=== PATIENT | male | born 1975 | race Caucasian/White ===

== ENCOUNTER 2016-11-14 17:38 | Emergency (ER) | payer BC ==
[~2016-11-14] VITALS: Ht 170.2 cm; Wt 104.3 kg
[~2016-11-14 17:38] MED LIST: ALBUTEROL; ALBUTEROL0.09 MG/A1 IH; QVAR HFA M80 MCG/ACT INH; [UNRECOGNIZED DRUG - REMARK]
--- NOTE | 2016-11-14 19:40 | NUR ---
Patient ambulated to bed 01.
--- NOTE | 2016-11-14 19:55 | NUR ---
41 Y/O M W/C/O HEADACHES THAT RADIATES BEHIND EYES, LOWER ABD PAIN AND L TESTICULAR PAIN X 1 WK. C/O FEELING DIZZY THE LAST 2 DAYS. NO S/S OF DISTRESS AT THIS MOMENT, ER MD NOTIFIED.
--- NOTE | 2016-11-14 20:33 | NUR ---
Dr. Callahan evaluating patient at bedside.
[2016-11-14] MEDS ORDERED: METOCLOPRAMIDE 10 MG/2 ML INJ VIAL IVP ONE (20:40)
[2016-11-14] MEDS ORDERED: NACL 0.9% 1,000 ML IV ONE (20:45)
[2016-11-14] MEDS ORDERED: IBUPROFEN 800 MG TAB PO ONE (22:20)
[2016-11-14 22:46] VITALS: BP 119/70
--- NOTE | 2016-11-14 22:46 | NUR ---
Patient discharged with v/s stable. Written and verbal after care instructions given and explained. Patient alert, oriented and verbalized understanding of instructions. Ambulatory with steady gait. All questions addressed prior to discharge. ID band removed. Patient advised to follow up with PMD OR IF CONDITION WORSENS RETURN TO ER. Rx of IBUPROFEN AND REGLAN given. Patient educated on indication of medication including possible reaction and side effects. Opportunity to ask questions provided and answered.
== END 2016-11-14 22:46 | disposition home or self-care (01) ==
LOC: MED 17:38
DX: J34.1 Cyst and mucocele of nose and nasal sinus (principal); N50.812 Left testicular pain; R10.30 Lower abdominal pain, unspecified
CPT/HCPCS: 36415; 70450; 80053; 81001; 85025; 85651; 93005; 96361; 96374; 99285; J2765; J7030

== ENCOUNTER 2017-12-02 18:22 | Emergency (ER) | payer SELFPAY ==
[~2017-12-02] VITALS: Ht 170.2 cm; Wt 97.5 kg
[~2017-12-02 18:22] MED LIST changes: -ALBUTEROL; -ALBUTEROL0.09 MG/A1 IH; +BECL0.089 INH; -QVAR HFA M80 MCG/ACT INH
[2017-12-02 18:29] VITALS: BP 128/90
[2017-12-02] MEDS ORDERED: NACL 0.9% 1,000 ML IV SCH (18:34)
[2017-12-02] MEDS ORDERED: ONDANSETRON 4 MG/2 ML VIAL IVP ONE ×2 (18:35→20:30)
[2017-12-02] MEDS ORDERED: MORPHINE SULFATE 10 MG/ML SYR IVP ONE (18:35)
--- NOTE | 2017-12-02 18:52 | NUR ---
PT RETURNED FROM CT
[2017-12-02] MEDS ORDERED: MORPHINE SULFATE 2 MG/ML SYR ONE (19:03)
[2017-12-02] MEDS ORDERED: MORPHINE SULFATE 4 MG/ML SYR ONE (19:04)
[2017-12-02 19:08] LABS: BASOPHILS # (AUTO) 0.4 K/uL (0.00-0.22); EOSINOPHILS # (AUTO) 0.2 K/uL (0-0.4); HEMATOCRIT 45.5 % (36-52); HEMOGLOBIN 15.1 g/dL (12.0-18.0); LYMPHOCYTES # (AUTO) 1.9 K/uL (2.0-11.5); MEAN CORPUSCULAR HEMOGLOBIN 30 pg (27-31); MEAN CORPUSCULAR HGB CONC 33 g/dL (33-37); MEAN CORPUSCULAR VOLUME 90 fL (80-94); MONOCYTES # (AUTO) 0.6 K/uL (0.8-1.0); NEUTROPHILS # (AUTO) 5.6 K/uL (1.8-7.7); PLATELET COUNT (AUTO) 169 K/uL (140-450); RED BLOOD CELL COUNT(AUTO) 5.08 MIL/uL (4.20-6.10); RED CELL DISTRIBUTION WIDTH 11.7 % (11.6-13.7); WHITE BLOOD COUNT (AUTO) 8.7 K/uL (4.8-10.8)
--- NOTE | 2017-12-02 19:16 | NUR ---
NURSING ASSESSMENT COMPLETED. DIAGNOSTIC TESTING INITIATED, IV ACCESS EST., LABS DRAWN, XRAY COMPLETED.
[2017-12-02 19:23] LABS: ALBUMIN 3.8 g/dL (3.4-5.0); ANION GAP 12.6 (8-16); CARBON DIOXIDE 29.7 mmol/L (21-32); CREATININE 1.6 mg/dL (0.7-1.3); POTASSIUM 3.3 mmol/L (3.5-5.1); TOTAL BILIRUBIN 1.1 mg/dL (0.0-1.0)
--- NOTE | 2017-12-02 19:26 | NUR ---
report recieved and care taken
[2017-12-02] MEDS ORDERED: KETOROLAC 30 MG/ML VIAL IVP ONE (20:30)
[2017-12-02] MEDS ORDERED: TAMSULOSIN 0.4 MG CAP PO STA (21:06)
--- NOTE | 2017-12-02 21:14 | NUR ---
HOUSE SUP CALLED FOR FLOMAX, NOT AVAILABLE IN ER
[2017-12-02 21:17] LABS: APPEARANCE,URINE HAZY (CLEAR); BILIRUBIN,URINE NEGATIVE (NEGATIVE); BLOOD, URINE 3+ (NEGATIVE); COLOR,URINE YELLOW (YELLOW); LEUKOCYTE ESTERASE ,URINE NEGATIVE (NEGATIVE); NITRITE, URINE NEGATIVE (NEGATIVE); UGLUCOSE NEGATIVE (NEGATIVE)
[2017-12-02 21:23] LABS: RBC,URINE 20-50 /HPF (0-5); WBC,URINE 0-5 (RARE) /HPF (0-5)
[2017-12-02 22:01] VITALS: BP 128/90
--- NOTE | 2017-12-02 22:01 | NUR ---
dcPatient discharged with v/s stable with decreased pain. Written and verbal after care instructions given and explained. Patient alert, oriented and verbalized understanding of instructions. Ambulatory with steady gait. All questions addressed prior to discharge. ID band removed. Patient advised to follow up with PMD. Rx of flomax, norco given. Patient educated on indication of medication including possible reaction and side effects. Opportunity to ask questions provided and answered.
== END 2017-12-02 22:01 | disposition home or self-care (01) ==
LOC: MED 18:22
DX: S37.002A Unspecified injury of left kidney, initial encounter (principal); N23 Unspecified renal colic; J45.909 Unspecified asthma, uncomplicated; K21.9 Gastro-esophageal reflux disease without esophagitis; Z79.899 Other long term (current) drug therapy; X58.XXXA Exposure to other specified factors, initial encounter; Y93.89 Activity, other specified; Y92.89 Other specified places as the place of occurrence of the external cause; Y99.8 Other external cause status
CPT/HCPCS: 36415; 74176; 80053; 81001; 83690; 85025; 96361; 96374; 96375; 96376; 99285; J1885; J2270; J2405

== ENCOUNTER 2017-12-08 19:50 | Emergency (ER) | payer BC ==
[~2017-12-08] VITALS: Ht 170.2 cm; Wt 97.5 kg
--- NOTE | 2017-12-08 19:57 | NUR ---
Pt c/o severe left flank pain, diaphoretic, and vomiting. Amb to bed 12.
[2017-12-08 19:58] VITALS: BP 160/94
--- NOTE | 2017-12-08 20:00 | NUR ---
42/M CAME IN W C/O 07/10 LEFT FLANK PAIN, PROGRESSIVELY WORSENING, SHARP, CONSTANT X 1 DAY. PT REPORTS HE WAS HERE 12/02/17 DX: KIDNEY STONE. DENIES FEVER/CHILLS, REPORTS N/V X3 TODAY. PT IN SEVERE DISTRESS AND DIAPHORETIC. ER MD LINDA MADE AWARE
[2017-12-08] MEDS ORDERED: MORPHINE SULFATE 4 MG/ML SYR ONE (20:13)
[2017-12-08] MEDS ORDERED: ONDANSETRON 4 MG ODT ONE (20:15)
[2017-12-08] MEDS ORDERED: NACL 0.9% 1,000 ML IV ONE ×2 (20:25→22:30)
[2017-12-08] MEDS ORDERED: KETOROLAC 30 MG/ML VIAL IVP ONE (20:25)
[2017-12-08] MEDS ORDERED: MORPHINE SULFATE 4 MG/ML SYR IVP ONE (20:35)
[2017-12-08] MEDS ORDERED: ONDANSETRON 4 MG ODT PO ONE (20:35)
[2017-12-08 21:27] LABS: APPEARANCE,URINE CLEAR (CLEAR); BILIRUBIN,URINE NEGATIVE (NEGATIVE); BLOOD, URINE TRACE-I (NEGATIVE); COLOR,URINE YELLOW (YELLOW); LEUKOCYTE ESTERASE ,URINE NEGATIVE (NEGATIVE); NITRITE, URINE NEGATIVE (NEGATIVE); PH,URINE 5.5 (5.0-9.0); UGLUCOSE NEGATIVE (NEGATIVE)
[2017-12-08 21:28] LABS: BASOPHILS # (AUTO) 0.2 K/uL (0.00-0.22); BASOPHILS % (AUTO) 1.8 % (0.0-2.0); EOSINOPHILS # (AUTO) 0.1 K/uL (0-0.4); EOSINOPHILS % (AUTO) 0.7 % (0.0-4.0); HEMOGLOBIN 14.4 g/dL (12.0-18.0); LYMPHOCYTES % (AUTO) 7.8 % (20.5-51.1); MEAN CORPUSCULAR HEMOGLOBIN 30 pg (27-31); MEAN CORPUSCULAR HGB CONC 33 g/dL (33-37); MEAN CORPUSCULAR VOLUME 91 fL (80-94); MONOCYTES # (AUTO) 0.7 K/uL (0.8-1.0); MONOCYTES % (AUTO) 5.2 % (1.7-9.3); NEUTROPHILS # (AUTO) 10.9 K/uL (1.8-7.7); NEUTROPHILS % (AUTO) 84.5 % (42.2-75.2); PLATELET COUNT (AUTO) 160 K/uL (140-450); RED BLOOD CELL COUNT(AUTO) 4.86 MIL/uL (4.20-6.10); RED CELL DISTRIBUTION WIDTH 11.6 % (11.6-13.7); WHITE BLOOD COUNT (AUTO) 12.9 K/uL (4.8-10.8)
[2017-12-08] MEDS ORDERED: HYDROmorphone PFS 2 MG/ML SYR IVP ONE ×2 (21:30→23:05)
[2017-12-08 21:35] LABS: ANION GAP 14.2 (8-16); CARBON DIOXIDE 26.6 mmol/L (21-32); CREATININE 1.3 mg/dL (0.7-1.3); POTASSIUM 3.8 mmol/L (3.5-5.1)
[2017-12-08 21:36] LABS: ALBUMIN 3.6 g/dL (3.4-5.0); TOTAL BILIRUBIN 0.7 mg/dL (0.0-1.0)
[2017-12-08] MEDS ORDERED: NACL 0.9% 3,000 ML IV ONE (22:10)
[2017-12-09 00:30] VITALS: BP 132/76
--- NOTE | 2017-12-09 00:30 | NUR ---
Patient discharged with v/s stable. Written and verbal after care instructions given and explained. Patient alert, oriented and verbalized understanding of instructions. Ambulatory with steady gait. All questions addressed prior to discharge. ID band removed. Patient advised to follow up with PMD. Rx of IBUPROFEN, PERCOCETM FLOMAX, ZOFRAN given. Patient educated on indication of medication including possible reaction and side effects. Opportunity to ask questions provided and answered. IV removed, catheter intact and site benign. Applied folded 4x4 gauze and tape to stop bleeding.
--- NOTE | 2017-12-27 20:01 | NUR ---
12/08/17 NS 1L ENDTIME: [id number]
== END 2017-12-09 00:30 | disposition home or self-care (01) ==
LOC: MED 19:50
DX: N23 Unspecified renal colic (principal); J45.909 Unspecified asthma, uncomplicated; K21.9 Gastro-esophageal reflux disease without esophagitis; Z79.899 Other long term (current) drug therapy
CPT/HCPCS: 36415; 80053; 81003; 83605; 83690; 85025; 87040; 96361; 96374; 96375; 96376; 99284; J1170; J1885; J2270; J7030; S0119

== ENCOUNTER 2018-02-28 21:23 | Emergency (ER) | payer BC ==
[~2018-02-28] VITALS: Ht 170.2 cm; Wt 99.8 kg
[2018-02-28 21:29] VITALS: BP 115/83
[2018-02-28 21:34] VITALS: BP 115/83
--- NOTE | 2018-02-28 21:34 | NUR ---
TO LOBBY AMBULATORY, A/W BED, KOBE HEARD NOTED
--- NOTE | 2018-02-28 21:45 | NUR ---
Isabel varela in [facility] - 02/28/18 at 2325 by MEDDCV PATIENT LEFT WITHOUT BEING SEEN BY DR. SIMON. NO FURTHER CARE PROVIDED FOR PATIENT.
--- NOTE | 2018-02-28 22:45 | NUR ---
PATIENT LEFT WITHOUT BEING SEEN BY DR. SIMON. NO FURTHER CARE PROVIDED FOR PATIENT.
== END 2018-02-28 22:45 | disposition left against medical advice (07) ==
LOC: MED 21:23
DX: R07.89 Other chest pain (principal); J45.909 Unspecified asthma, uncomplicated; K21.9 Gastro-esophageal reflux disease without esophagitis; Z79.899 Other long term (current) drug therapy; Z53.21 Procedure and treatment not carried out due to patient leaving prior to being seen by health care provider
CPT/HCPCS: 93005; 99281

== ENCOUNTER 2020-01-16 19:12 | Emergency (ER) | payer BC ==
[~2020-01-16] VITALS: Ht 170.2 cm; Wt 103.4 kg
[2020-01-16 19:32] VITALS: BP 132/89
--- NOTE | 2020-01-16 19:40 | NUR ---
Dr. zaidi at bedside.
[2020-01-16] MEDS ORDERED: KETOROLAC 15 MG/ML VIAL IVP ONE (19:45)
[2020-01-16] MEDS ORDERED: NACL 0.9% 1,000 ML IV ONE (19:45)
--- NOTE | 2020-01-16 19:47 | NUR ---
44 YO MALE CO LEFT FLANK PAIN X1 WEEK AND PROGRESSING. 8/10 PAIN. RADIATES TO LEFT LOWER BACK AND SUPRAPUBIC LEFT SIDE. INCREASE IN URINE FREQUENCY. HX: ASTHMA
--- NOTE | 2020-01-16 20:07 | NUR ---
pt taken to ct via wheelchair.
--- NOTE | 2020-01-16 20:07 | NUR ---
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
--- NOTE | 2020-01-16 20:07 | NUR ---
LABS DRAWN AND LAB NOTIFIED
--- NOTE | 2020-01-16 20:11 | NUR ---
PT BACK FROM CT
[2020-01-16 20:17] LABS: BASOPHILS # (AUTO) 0.1 K/uL (0.00-0.22); BASOPHILS % (AUTO) 0.7 % (0.0-2.0); EOSINOPHILS # (AUTO) 0.2 K/uL (0-0.4); EOSINOPHILS % (AUTO) 2.4 % (0.0-4.0); HEMATOCRIT 45.4 % (36-52); HEMOGLOBIN 15.6 g/dL (12.0-18.0); LYMPHOCYTES # (AUTO) 2.8 K/uL (2.0-11.5); MEAN CORPUSCULAR HEMOGLOBIN 31 pg (27-31); MEAN CORPUSCULAR HGB CONC 34 g/dL (33-37); MEAN CORPUSCULAR VOLUME 90.6 fL (80-94); MONOCYTES # (AUTO) 0.6 K/uL (0.8-1.0); MONOCYTES % (AUTO) 7.9 % (1.7-9.3); NEUTROPHILS # (AUTO) 4.4 K/uL (1.8-7.7); PLATELET COUNT (AUTO) 177 K/uL (140-450); RED BLOOD CELL COUNT(AUTO) 5.01 MIL/uL (4.20-6.10); RED CELL DISTRIBUTION WIDTH 13.2 % (11.6-13.7); WHITE BLOOD COUNT (AUTO) 8.1 K/uL (4.8-10.8)
[2020-01-16 20:25] LABS: ANION GAP 16.3 (8-16); CARBON DIOXIDE 22.7 mmol/L (21-32); CREATININE 1.1 mg/dL (0.6-1.3)
[2020-01-16 21:11] VITALS: BP 132/89
--- NOTE | 2020-01-16 21:11 | NUR ---
Patient discharged with v/s stable. Written and verbal after care instructions given and explained. Patient verbalized understanding. Ambulatory with steady gait. All questions addressed prior to discharge. Advised to follow up with PMD. PT GIVEN RESULTS FOR IMAGING AND LABS AND INSTRUCTED TO FOLLOW UP WITH PCP AND UROLOGIST.
== END 2020-01-16 21:11 | disposition home or self-care (01) ==
LOC: MED 19:12
DX: N13.30 Unspecified hydronephrosis (principal); J45.909 Unspecified asthma, uncomplicated; K21.9 Gastro-esophageal reflux disease without esophagitis; Z90.49 Acquired absence of other specified parts of digestive tract; Z79.899 Other long term (current) drug therapy
CPT/HCPCS: 36415; 74176; 80048; 81002; 85025; 96374; 99284; J1885; J7030

== ENCOUNTER 2020-12-09 18:05 | Emergency (ER) | payer BC ==
[~2020-12-09] VITALS: Ht 170.2 cm; Wt 112.9 kg
[2020-12-09 18:13] VITALS: BP 134/80
--- NOTE | 2020-12-09 18:16 | NUR ---
PATIENT GIVEN URINE CUP AND AMBULATED TO LOBBY WITH STEADY GAIT
[2020-12-09] MEDS ORDERED: NACL 0.9% 1,000 ML IV ONE (19:50)
[2020-12-09] MEDS ORDERED: KETOROLAC 15 MG/ML VIAL IVP ONE (19:50)
[2020-12-09 20:12] LABS: APPEARANCE,URINE CLEAR (CLEAR); BILIRUBIN,URINE NEGATIVE (NEGATIVE); BLOOD, URINE NEGATIVE (NEGATIVE); COLOR,URINE YELLOW (YELLOW); LEUKOCYTE ESTERASE ,URINE NEGATIVE (NEGATIVE); NITRITE, URINE NEGATIVE (NEGATIVE); PH,URINE 5.5 (5.0-9.0); UGLUCOSE NEGATIVE (NEGATIVE)
[2020-12-09 20:20] LABS: BASOPHILS % (AUTO) 0.7 % (0.0-2.0); EOSINOPHILS # (AUTO) 0.2 K/uL (0-0.4); EOSINOPHILS % (AUTO) 2.5 % (0.0-4.0); HEMATOCRIT 44.5 % (36-52); HEMOGLOBIN 15.1 g/dL (12.0-18.0); LYMPHOCYTES # (AUTO) 2.7 K/uL (2.0-11.5); LYMPHOCYTES % (AUTO) 39.6 % (20.5-51.1); MEAN CORPUSCULAR HEMOGLOBIN 30 pg (27-31); MEAN CORPUSCULAR HGB CONC 34 g/dL (33-37); MEAN CORPUSCULAR VOLUME 89.2 fL (80-94); MONOCYTES # (AUTO) 0.6 K/uL (0.8-1.0); MONOCYTES % (AUTO) 8.3 % (1.7-9.3); NEUTROPHILS # (AUTO) 3.3 K/uL (1.8-7.7); NEUTROPHILS % (AUTO) 48.9 % (42.2-75.2); PLATELET COUNT (AUTO) 160 K/uL (140-450); RED BLOOD CELL COUNT(AUTO) 4.99 MIL/uL (4.20-6.10); WHITE BLOOD COUNT (AUTO) 6.7 K/uL (4.8-10.8)
[2020-12-09 20:32] LABS: ALBUMIN 3.9 g/dL (3.4-5.0); ANION GAP 11.2 (8-16); CARBON DIOXIDE 27.5 mmol/L (21-32); CREATININE 1.2 mg/dL (0.6-1.3); POTASSIUM 3.7 mmol/L (3.5-5.1); TOTAL BILIRUBIN 0.6 mg/dL (0.0-1.0)
[2020-12-09] MEDS ORDERED: MORPHINE SULFATE 4 MG/ML SYR IVP ONE (21:15)
[2020-12-09 21:16] VITALS: BP 107/76
--- NOTE | 2020-12-09 21:21 | NUR ---
see complete assessment.
--- NOTE | 2020-12-09 21:21 | NUR ---
pt remains on bed on semi fowlers position. pt a/o x4, gcs 15. able to move all extremities. VSS. does not appear to be in distress at this time. IV site patent and flushable.
[2020-12-09] MEDS ORDERED: PYR100 PO (22:19)
[2020-12-09] MEDS ORDERED: TAMS0.4C96 PO (22:19)
--- NOTE | 2020-12-09 22:30 | NUR ---
Patient discharged with v/s stable. Written and verbal after care instructions given and explained. Patient alert, oriented and verbalized understanding of instructions. Ambulatory with steady gait. All questions addressed prior to discharge. ID band removed. Patient advised to follow up with PMD. Rx of flomax and pyridium given. Patient educated on indication of medication including possible reaction and side effects. Opportunity to ask questions provided and answered.
== END 2020-12-09 22:30 | disposition home or self-care (01) ==
LOC: MED 18:05
DX: R30.0 Dysuria (principal); R10.9 Unspecified abdominal pain
CPT/HCPCS: 36415; 74176; 80053; 81003; 83690; 85025; 96361; 96374; 96375; 99284; J1885; J2270; J7030

== ENCOUNTER 2022-04-28 15:16 | Inpatient (IN) | payer BC ==
[~2022-04-28] VITALS: Ht 170.2 cm; Wt 108.1 kg
[~2022-04-28 15:16] MED LIST changes: +PYR100 PO; +TAMS0.4C96 PO
[2022-04-28 15:26] VITALS: BP 144/98
[2022-04-28] MEDS ORDERED: ONDANSETRON 4 MG ODT PO ONE (16:00)
[2022-04-28] MEDS ORDERED: DICYCLOMINE HCL LIQUID 20 MG, ALUMINUM HYD/MAG/SIMETHICONE 30 ML, LIDOCAINE VISCOUS 2% ... PO ONE ×3 (16:00)
[2022-04-28] MEDS ORDERED: ALUMINUM HYD/MAG/SIMETHICONE 30 ML UDC ONE (16:05)
[2022-04-28] MEDS ORDERED: DICYCLOMINE HCL LIQUID 10 MG/5 ML UDC ONE (16:05)
--- NOTE | 2022-04-28 16:41 | NUR ---
PATIENT PRESENTS TO ED WITH ABD PAIN, N/V ONSET LAST NIGHT. DENIES N/V/D; SKIN IS PINK/WARM/DRY; AAOX4 WITH EVEN AND STEADY GAIT; LUNGS CLEAR BL; HR EVEN AND REGULAR; PT DENIES ANY FEVER, CP, SOB, OR COUGH AT THIS TIME; PATIENT STATES PAIN OF 10/10 AT THIS TIME; VSS; PATIENT POSITIONED FOR COMFORT; HOB ELEVATED; BEDRAILS UP X2; BED DOWN. ER MD MADE AWARE OF PT STATUS.
[2022-04-28 16:47] LABS: BASOPHILS % (AUTO) 0.3 % (0.0-2.0); EOSINOPHILS % (AUTO) 0.1 % (0.0-4.0); HEMATOCRIT 50.8 % (36-52); HEMOGLOBIN 17.1 g/dL (12.0-18.0); LYMPHOCYTES # (AUTO) 1.2 K/uL (2.0-11.5); LYMPHOCYTES % (AUTO) 9.4 % (20.5-51.1); MEAN CORPUSCULAR HEMOGLOBIN 30 pg (27-31); MEAN CORPUSCULAR HGB CONC 34 g/dL (33-37); MONOCYTES # (AUTO) 0.6 K/uL (0.8-1.0); MONOCYTES % (AUTO) 4.7 % (1.7-9.3); NEUTROPHILS # (AUTO) 10.9 K/uL (1.8-7.7); NEUTROPHILS % (AUTO) 85.5 % (42.2-75.2); PLATELET COUNT (AUTO) 203 K/uL (140-450); RED BLOOD CELL COUNT(AUTO) 5.71 MIL/uL (4.20-6.10); WHITE BLOOD COUNT (AUTO) 12.7 K/uL (4.8-10.8)
[2022-04-28 17:04] LABS: ALBUMIN 4.7 g/dL (3.4-5.0); ANION GAP 15.2 (8-16); CARBON DIOXIDE 27.8 mmol/L (21-32); CREATININE 1.1 mg/dL (0.6-1.3); TOTAL BILIRUBIN 2.4 mg/dL (0.0-1.0)
[2022-04-28] MEDS ORDERED: NACL 0.9% 1,000 ML IV ONE (17:25)
--- NOTE | 2022-04-28 17:25 | NUR ---
DR BILLS AT [facility], UPDATING PATIENT ACCORDINGLY.
--- NOTE | 2022-04-28 17:47 | NUR ---
TO CT VIA WC.
[2022-04-28] MEDS ORDERED: MORPHINE SULFATE 2 MG/ML SYR IVP STA (18:19)
[2022-04-28] MEDS ORDERED: ONDANSETRON 4 MG/2 ML VIAL IVP ONE (18:20)
[2022-04-28 19:11] LABS: APPEARANCE,URINE CLEAR (CLEAR); BILIRUBIN,URINE NEGATIVE (NEGATIVE); BLOOD, URINE NEGATIVE (NEGATIVE); COLOR,URINE BROWN (YELLOW); LEUKOCYTE ESTERASE ,URINE NEGATIVE (NEGATIVE); NITRITE, URINE NEGATIVE (NEGATIVE); UGLUCOSE NEGATIVE (NEGATIVE)
--- NOTE | 2022-04-28 19:15 | NUR ---
RECIEVED REPORT FROM HELENA HALL
--- NOTE | 2022-04-28 20:30 | NUR ---
XRAY AT BEDSIDE
--- NOTE | 2022-04-28 20:55 | NUR ---
XRAY AT BEDSIDE
[2022-04-28] MEDS ORDERED: HYDROcodone/APAP 5/325 MG 1 TAB TAB PO PRN (21:45)
[2022-04-28] MEDS ORDERED: ACETAMINOPHEN 325 MG TAB PO PRN (21:45)
[2022-04-28] MEDS ORDERED: SODIUM PHOS / POTASSIUM PHOS 1 PKT PDR PO PRN (21:45)
[2022-04-28] MEDS ORDERED: POTASSIUM CHLORIDE 40 MEQ, LIDOCAINE MPF 1% 25 MG in NACL 0.9% 250 ML IV PRN (21:45)
[2022-04-28] MEDS ORDERED: MAG SULF 2000 MG/WATER PREMIX 50 ML IV PRN (21:45)
[2022-04-28] MEDS ORDERED: ONDANSETRON 4 MG/2 ML VIAL IM/IVP PRN (21:45)
[2022-04-28] MEDS ORDERED: DOCUSATE SODIUM 100 MG GELCAP PO PRN (21:45)
[2022-04-28] MEDS ORDERED: MORPHINE SULFATE 2 MG/ML SYR IVP PRN (21:45)
[2022-04-28] MEDS: DEXT 5% /NACL 0.9% 1,000 ML IV SCH (22:33)
--- NOTE | 2022-04-28 23:18 | NUR ---
XRAY AT BEDSIDE
--- NOTE | 2022-04-28 23:39 | NUR ---
IMER/BRIAN COLLECTED AND WALKED TO LAB
--- NOTE | 2022-04-29 02:00 | NUR ---
Patient appears to be resting comfortably in bed. Vital Signs within normal limits. Respirations even and unlabored. pt given blanket for comfort and given a urinal at bedside.
--- NOTE | 2022-04-29 05:19 | NUR ---
INTERMEDIATE MANAGER AT BEDSIDE
[2022-04-29 06:25] LABS: BASOPHILS % (AUTO) 0.2 % (0.0-2.0); EOSINOPHILS # (AUTO) 0.1 K/uL (0-0.4); EOSINOPHILS % (AUTO) 1.4 % (0.0-4.0); HEMATOCRIT 43.9 % (36-52); HEMOGLOBIN 14.4 g/dL (12.0-18.0); LYMPHOCYTES % (AUTO) 23.9 % (20.5-51.1); MEAN CORPUSCULAR HEMOGLOBIN 30 pg (27-31); MEAN CORPUSCULAR HGB CONC 33 g/dL (33-37); MEAN CORPUSCULAR VOLUME 90.1 fL (80-94); MONOCYTES # (AUTO) 0.9 K/uL (0.8-1.0); MONOCYTES % (AUTO) 10.6 % (1.7-9.3); NEUTROPHILS # (AUTO) 5.3 K/uL (1.8-7.7); NEUTROPHILS % (AUTO) 63.9 % (42.2-75.2); PLATELET COUNT (AUTO) 158 K/uL (140-450); RED BLOOD CELL COUNT(AUTO) 4.87 MIL/uL (4.20-6.10); RED CELL DISTRIBUTION WIDTH 13.8 % (11.6-13.7); WHITE BLOOD COUNT (AUTO) 8.3 K/uL (4.8-10.8)
[2022-04-29 06:54] LABS: ANION GAP 11.4 (8-16); CARBON DIOXIDE 26.4 mmol/L (21-32); CREATININE 1.1 mg/dL (0.6-1.3); POTASSIUM 3.8 mmol/L (3.5-5.1)
[2022-04-29 07:07] LABS: PHOSPHORUS 3.8 mg/dL (2.5-4.9)
--- NOTE | 2022-04-29 07:15 | NUR ---
REPORT RECIEVED FROM ERIC MALIK
--- NOTE | 2022-04-29 07:19 | NUR ---
GAVE TRANSFER OF CARE REPORT TO KELSEY CONCEPCION
--- NOTE | 2022-04-29 08:04 | NUR ---
47YR OLD MALE C/O N/V X1DAY. PT ADMITTED FOR PARTIAL BOWEL OBSTRUCTION TO MED SURG. ON HOLD UNTIL BED AVAIL. PT IS NPO EXCEPT FOR MEDS. NG ONLY IT PERSISTANT VOMITING. 18G IV CATH PLACED R AC . PT IS A&OX4. HOB ELEVATED. SIDE RAILS UP X2 BED AT LOWEST POSITION
[2022-04-29] MEDS ORDERED: METOCLOPRAMIDE 10 MG/2 ML INJ VIAL IVP PRN (08:50)
[2022-04-29] MEDS ORDERED: PANTOPRAZOLE 40 MG INJ VIAL IVP SCH (09:00)
[2022-04-29] MEDS: DEXT 5% /NACL 0.9% 1,000 ML IV SCH ×2 (11:06→23:09)
--- NOTE | 2022-04-29 11:29 | NUR ---
PT ASLEEP. ON BEDSIDE MONITOR. RESP EVEN AND UNLABORED. SIDE RAILS UPX2 HOB ELEVATED.
--- NOTE | 2022-04-29 14:00 | NUR ---
SURGEON AT BEDSIDE . NEW DIET ORDER OF C.L. OFFERED APPLE JUICE OF 40Z TOLERATED WELL. DENIES N/V. DENIES PAIN. HOB ELEVATED. SIDE RAILS UP X2. BED AT LOWEST POSITION. RESP EVEN AND UNLABORED
--- NOTE | 2022-04-29 14:42 | NUR ---
PT AMBULATE TO BATHROOM . STEADY GAIT
--- NOTE | 2022-04-29 15:34 | NUR ---
PT TOLERATED 8OZ OF JUICE AND JELLO
--- NOTE | 2022-04-29 16:02 | NUR ---
PT RESTING ON BEDSIDE MONTIOR. PT DENIES ANY PAIN. AMBULATE TO BATHROOM WITH STEADY GAIT. TOLERATED CL WELL
--- NOTE | 2022-04-29 17:45 | NUR ---
PT HAD TWO BOWEL MOVEMENTS . DENIES ANY ABD PAIN OR N/V. TOLERATED MORE CL .
--- NOTE | 2022-04-29 20:19 | NUR ---
AWAKE,TALKING ON CELL PHONE
--- NOTE | 2022-04-29 21:00 | NUR ---
AMBULATED TO BR, HAD BM, DIARRHEA. BACK TO BED AND MADE COMFORTABLE
--- NOTE | 2022-04-30 02:00 | NUR ---
AWAKENS WITH EASE, DENIES PAIN. ASSISTED WITH COMFORT
[2022-04-30 06:00] VITALS: BP 102/56
--- NOTE | 2022-04-30 06:00 | NUR ---
RESTING COMFORTABLY WITH EYES CLOSED. RESPIRATIONS REGULAR AND UNLABORED
--- NOTE | 2022-04-30 07:45 | NUR ---
PT IS A ADMISSION A MED SURG HOLD. DX OF PARTIAL BOWEL OBSTRUCTION. AVAIL BED READY. PT IS AWARE OF TRANSPORT. PT IS A&OX4. UP TO BATHROOM PRIVILEGES WITH STEADY GAIT. DENIES N/V/D. BOWEL MOVEMENT THIS AM FORMED SOLID STOOL. 5/10 PAIN LEVEL. PT IS ON BEDSIDE MONITOR VS WNL. SKIN INTACT WARM PINK DRY. RESP EVEN AND UNLABORED. HOB ELEVATED WITH SIDE RAILS UP X2 . BED AT LOWEST POSITION NKDA HERNIA REPAIR
--- NOTE | 2022-04-30 08:12 | NUR ---
Patient will be admitted to care of DR CAMPBELL. Admited to [facility]. Will go to room 119A. Belongings list completed. Report to QUAN MALIK.
--- NOTE | 2022-04-30 09:08 | NUR ---
Note undone in EDM - 04/30/22 at 1014 by MNURPM PT IS A ADMISSION A MED SURG HOLD. DX OF PARTIAL BOWEL OBSTRUCTION. AVAIL BED READY. PT IS AWARE OF TRANSPORT. PT IS A&OX4. UP TO BATHROOM PRIVILEGES WITH STEADY GAIT. DENIES N/V/D. BOWEL MOVEMENT THIS AM FORMED SOLID STOOL. 5/10 PAIN LEVEL. PT IS ON BEDSIDE MONITOR VS WNL. SKIN INTACT WARM PINK DRY. RESP EVEN AND UNLABORED. HOB ELEVATED WITH SIDE RAILS UP X2 . BED AT LOWEST POSITION NKDA HERNIA REPAIR
[2022-04-30] MEDS ORDERED: PANT40EC PO (10:08)
[2022-04-30] MEDS ORDERED: METO-485 PO (10:08)
[2022-04-30] MEDS ORDERED: ONDA-188 PO (10:08)
[2022-04-30] MEDS ORDERED: DOCU-299 PO (10:08)
--- NOTE | 2022-04-30 11:00 | NUR ---
PATIENT HAS BEEN SCREENED AND CATEGORIZED LOW NUTRITION RISK. PATIENT WILL BE SEEN WITHIN 7 DAYS OF ADMISSION. 04/29/22-05/05/[address]
== END 2022-04-30 11:19 | disposition home or self-care (01) | DRG 872 ==
LOC: MED 15:16 → MMU 21:25 → MTU 04-30 06:28
PROVIDERS: ADMIT Hospitalist; ATTEND Hospitalist
DX: A41.9 Sepsis, unspecified organism (principal); K56.7 Ileus, unspecified; J45.909 Unspecified asthma, uncomplicated; K21.9 Gastro-esophageal reflux disease without esophagitis; E80.6 Other disorders of bilirubin metabolism; E86.0 Dehydration; R74.01 Elevation of levels of liver transaminase levels; Z20.822 Contact with and (suspected) exposure to COVID-19; Z79.899 Other long term (current) drug therapy
CPT/HCPCS: 36415; 74021; 74250; 80048; 80053; 81003; 83605; 83690; 83735; 84100; 85025; 96361; 96374; 96375; 99285; C9113; J2270; J2405; J7030; Q0162; Q9967